=== PATIENT | male | born 1970 | race Caucasian/White ===

== ENCOUNTER 2020-06-19 12:53 | Outpatient (CLI) | payer MEDICARE ==
--- NOTE | 2020-06-19 13:17 | RAD ---
Chest 2 views HISTORY: Dyspnea. COMPARISON: 06/16/2013. FINDINGS: Cardiac silhouette and pulmonary vasculature are unremarkable. Mediastinum is midline. No lobar consolidation or evidence of pneumothorax. Curvature of the thoracolumbar junction spine is similar in appearance to the prior study. IMPRESSION : No active cardiopulmonary abnormalities are demonstrated.
== END 2020-06-19 12:54 | disposition home or self-care (01) ==
LOC: BICRAD 12:53
PROVIDERS: ATTEND Internal Medicine Critical Care Medicine
DX: R06.00 Dyspnea, unspecified (principal)
CPT/HCPCS: 71046

== ENCOUNTER 2023-08-04 13:46 | Outpatient (CLI) | payer MEDICARE | END 2023-08-04 13:47 | disposition home or self-care (01) | LOC: RAD 13:46 | PROVIDERS: ATTEND Internal Medicine Critical Care Medicine | DX: R06.00 Dyspnea, unspecified (principal); J98.4 Other disorders of lung | CPT/HCPCS: 71046 ==

== ENCOUNTER 2024-08-04 11:48 | Outpatient (CLI) | payer MEDICARE | END 2024-08-04 11:49 | disposition home or self-care (01) | LOC: RAD 11:48 | PROVIDERS: ATTEND Internal Medicine Critical Care Medicine | DX: R06.00 Dyspnea, unspecified (principal) | CPT/HCPCS: 71046 ==

== ENCOUNTER 2025-08-04 14:08 | Outpatient (CLI) | payer MEDICARE | END 2025-08-04 14:09 | disposition home or self-care (01) | LOC: RAD 14:08 | PROVIDERS: ATTEND Internal Medicine Critical Care Medicine | DX: R06.00 Dyspnea, unspecified (principal) | CPT/HCPCS: 71046 ==